=== PATIENT | male | born 1955 | race Caucasian/White ===

== ENCOUNTER 2020-12-31 15:56 | Emergency (ER) | payer OTHER, SELFPAY ==
--- NOTE | 2020-12-31 16:03 | ED.MALEGU ---
HPI - Male Genitourinary General Chief complaint: Urogenital-Male Stated complaint: Urinating blood Time Seen by Provider: 12/31/20 16:03 Source: patient and RN notes reviewed History of Present Illness HPI Narrative: Patient is a 65-year-old male who presents the urgent care with complaints of urinating blood. Patient states that occurred 3 times since this afternoon. States that he is increased his water intake without any improvement. Patient denies of any fever, chills, nausea, vomiting, back pain, abdominal pain. Denies of any history of hematuria. Denies any history of UTIs. Patient states that he has not had any recent sexual intercourse. Denies of any recent trauma. No other acute complaints. No acute distress noted. Patient aware of the plan of care. Some parts of this dictation were generated by voice recognition software and may contain typographical and/or grammatical inaccuracies. Related Data Home Medications Medication Instructions Recorded Confirmed No Home Medications 12/31/20 12/31/20 Allergies Allergy/AdvReac Type Severity Reaction Status Date / Time Sulfa (Sulfonamide Allergy Unknown Unknown Verified 12/31/20 16:13 Antibiotics) sulfanilamide Allergy Unknown Unknown Verified 12/31/20 16:13 Review of Systems Review of Systems: Narrative: CONSTITUTIONAL: Denies fever, chills, or sweats. EYES: Denies visual changes, redness, or discharge. ENT: Denies rhinorrhea, congestion, sore throat, or otalgia. CARDIOVASCULAR: Denies chest pain, palpitations, or edema. RESPIRATORY: Denies cough or dyspnea. GASTROINTESTINAL: Denies abdominal pain, nausea, vomiting, or diarrhea. GENITOURINARY: Reports of hematuria SKIN: Denies rash or itching. MUSCULOSKELETAL: Denies back pain, joint pain, or myalgia. NEUROLOGIC: Denies headache, numbness, or weakness. All other systems reviewed are negative, except as documented in HPI. [facility] Family History Family History (Updated 10/01/14 @ 07:48 by DOCTOR UNKNOWN) Father Carcinoma of colon Family history of malignant neoplasm Mother Family history of pancreatic cancer Family history of malignant neoplasm Other Hypertension Social History Social History Smoking status: Former smoker Smoking end date: 07/04/07 Alcohol intake: current Comments At the time of my signature, I reviewed and agree with the nursing past medical, surgical, social, and family history. There is no relevant family history pertinent to the patient complaint. Exam Narrative: Exam Narrative: GENERAL: This is a well-nourished, well-developed patient, in no apparent distress. HEAD: normocephalic, atraumatic. EYES: PERRL. Sclera clear/white. Vision is grossly intact. EARS: External ears normal NOSE: External nose normal with no obvious nasal discharge, nares without redness, no rhinorrhea. THROAT: Mucous membranes moist NECK: Neck supple CARDIOVASCULAR: Regular rate and rhythm without murmurs, gallops, or rubs. RESPIRATORY: Clear to auscultation. Breath sounds equal bilaterally. No wheezes, rales, or rhonchi. GASTROINTESTINAL: Abdomen soft, non-tender, nondistended. Bowel sounds are active. SKIN: warm, intact with no suspicious lesions or rash, good texture and turgor. NEURO: awake, alert, and oriented to person, place and time. There were no obvious focal neurologic abnormalities. EXTREMITIES: No clubbing, cyanosis, or edema. BACK: Negative bilateral CVA tenderness Course Vital Signs Vital signs: Vital Signs Temperature 97 F L 12/31/20 16:05 Pulse Rate 66 12/31/20 16:05 Respiratory Rate 18 12/31/20 16:05 Blood Pressure 160/82 H 12/31/20 16:05 Pulse Oximetry 99 12/31/20 16:05 Temperature 97 F L 12/31/20 16:05 Pulse Rate 66 12/31/20 16:05 Respiratory Rate 18 12/31/20 16:05 Blood Pressure 160/82 H 12/31/20 16:05 Pulse Oximetry 99 12/31/20 16:05 Reviewed- MDM - Male Genitourinary MDM Narrative Medical decision making narrative
[2020-12-31 16:05] VITALS: BP 160/82; PULSE 66; RESP 18; TEMP 36.1; O2SAT 99
== END 2020-12-31 16:30 | disposition home or self-care (01) ==
PROVIDERS: Emergency Provider Nurse Practitioner Family
DX: R31.9 Hematuria, unspecified (principal); Z87.891 Personal history of nicotine dependence; E78.00 Pure hypercholesterolemia, unspecified; I10 Essential (primary) hypertension; J45.909 Unspecified asthma, uncomplicated
CPT/HCPCS: 81003; 99212; G0463